=== PATIENT | female | born 1985 | race American Indian/Alaskan Native ===

== ENCOUNTER 2022-03-16 17:09 | Emergency (ER) | payer SELFPAY ==
[2022-03-16 19:35] LABS: Bacteria,Urine 1+ /HPF (Negative); Mucus,Urine 1+ /HPF
[2022-03-16 19:36] LABS: Color,Urine Yellow (Yellow); HCG Qualitative,Urine Negative (Negative)
[2022-03-16 22:38] LABS: Basophils # (Auto) 0.1 K/mm3 (0.0-0.1); Basophils % (Auto) 0.5 % (0.0-1.8); Eosinophils # (Auto) 0.1 K/mm3 (0.0-0.4); Eosinophils % (Auto) 0.7 % (0.0-4.3); Hematocrit 43.2 % (30.3-42.9); Hemoglobin 14.1 gm/dl (10.1-14.3); Lymphocytes # (Auto) 1.3 K/mm3 (1.2-5.4); Mean Corpuscular HGB Conc 33 % (30-34); Mean Corpuscular Volume 90 fl (79-97); Monocytes # (Auto) 0.4 K/mm3 (0.0-0.8); Monocytes % (Auto) 2.7 % (0.0-7.3); Platelet Count 293 K/mm3 (140-440); Red Blood Count 4.81 M/mm3 (3.65-5.03); Red Cell Distribution Width 13.1 % (13.2-15.2)
[2022-03-16] MEDS ORDERED: ONDANSETRON 4 MG/2 ML INJ IV ONE (22:52)
[2022-03-16] MEDS ORDERED: SODIUM CHLORIDE 0.9% 1000 ML 1,000 ML IV ONE (22:53)
[2022-03-16] MEDS ORDERED: MORPHINE 4 MG/1 ML INJ IV ONE (22:54)
[2022-03-16 22:56] LABS: Blood Urea Nitrogen 10 mg/dL (7-17); Calcium 9.3 mg/dL (8.4-10.2); Hemolysis Index 9
--- NOTE | 2022-03-16 22:58 | Emergency Department Report ---
ED Abdominal Pain HPI - General Chief Complaint: Abdominal Pain Stated Complaint: ABD PAIN Time Seen by Provider: 03/16/22 22:41 Source: patient Mode of arrival: Ambulatory Limitations: No Limitations - History of Present Illness Initial Comments: 6-year-old female who presents with abdominal pain that has been going on for the last 3 days or 72 hours progressively getting worse. Pain is located at the epigastrium and periumbilical. Patient also reports some nausea with some blood streak emesis. Patient reported that she could not tolerate any fluid or solids food. No fever or chills reported. Patient also denies any diarrhea. Patient also mentioned alcohol 72 hours before the pain started. No other modifying or associated factors reported. MD Complaint: abdominal pain Severity scale (0 -10): 5 - Related Data Previous Rx's Medication Instructions Recorded Last Taken Type Omeprazole Magnesium [PriLOSEC Otc] 20 mg PO BID 30 Days #60 tab NS 03/17/22 Unknown Rx Ondansetron (Nf) [Zofran TAB] 8 mg PO Q8HR PRN 5 Days #15 tablet 03/17/22 Unknown Rx NS predniSONE [Deltasone] 20 mg PO QDAY 7 Days #7 tab NS 03/17/22 Unknown Rx Allergies Allergy/AdvReac Type Severity Reaction Status Date / Time No Known Allergies Allergy Verified 03/16/22 17:54 ED Review of Systems ROS: Stated complaint: ABD PAIN Other details as noted in HPI Comment: All other systems reviewed and negative Gastrointestinal: abdominal pain, nausea, vomiting. denies: diarrhea, constipation ED Past Medical Hx - Past Medical History Previous Medical History?: No - Surgical History Past Surgical History?: No - Medications Home Medications: Home Medications Medication Instructions Recorded Confirmed Last Taken Type Omeprazole Magnesium [PriLOSEC Otc] 20 mg PO BID 30 Days #60 tab NS 03/17/22 Unknown Rx Ondansetron (Nf) [Zofran TAB] 8 mg PO Q8HR PRN 5 Days #15 tablet 03/17/22 Unknown Rx NS predniSONE [Deltasone] 20 mg PO QDAY 7 Days #7 tab NS 03/17/22 Unknown Rx ED Physical Exam - General Limitations: No Limitations General appearance: alert, in distress (due to pain ) - Head Head exam: Present: normal inspection - Eye Eye exam: Present: normal appearance Pupils: Present: normal accommodation - ENT ENT exam: Present: normal exam, normal orophraynx, mucous membranes dry, other (dry mucosa ) - Neck Neck exam: Present: normal inspection, full ROM. Absent: tenderness - Respiratory Respiratory exam: Present: normal lung sounds bilaterally. Absent: respiratory distress, accessory muscle use - Cardiovascular Cardiovascular Exam: Present: regular rate, normal rhythm, normal heart sounds - GI/Abdominal GI/Abdominal exam: Present: soft, tenderness (epigastrium and paraumbilical ), normal bowel sounds. Absent: distended - Extremities Exam Extremities exam: Present: normal inspection, normal capillary refill. Absent: tenderness, pedal edema - Back Exam Back exam: Absent: tenderness, CVA tenderness (R), CVA tenderness (L) - Neurological Exam Neurological exam: Present: alert, oriented X3 - Psychiatric Psychiatric exam: Present: normal affect, normal mood - Skin Skin exam: Present: warm, normal color ED Course Vital Signs 03/16/22 03/16/22 03/16/22 17:51 21:56 23:00 Temperature 98.1 F Pulse Rate 94 H 74 Respiratory 16 17 18 Rate Blood Pressure Blood Pressure 141/70 87/56 [Right] O2 Sat by Pulse 100 100 Oximetry 03/16/22 03/16/22 03/16/22 23:10 23:16 23:34 Temperature 99.1 F Pulse Rate 98 H Respiratory 18 Rate Blood Pressure Blood Pressure 133/68 [Right] O2 Sat by Pulse 98 100 100 Oximetry 03/16/22 03/17/22 03/17/22 23:45 00:01 00:15 Temperature Pulse Rate Respiratory Rate Blood Pressure 124/66 124/66 124/66 Blood Pressure [Right] O2 Sat by Pulse 99 97 98 Oximetry 03/17/22 00:31 Temperature Pulse Rate Respiratory Rate Blood Pressure 104/79 Blood Pressure [Right] O2 Sat by Pulse 99 Oximetry ED Medical Decision Making - Lab Data Result diagrams: 03/16/22 22:17 03/16/22 22:17 - Radiology Data FINDINGS: CT abdomen without contrast demonstrates prominent hepatic steatosis. There is a hyperdense round mass within the right lobe of the liver measuring 2.3 cm. There are additional smaller mass noted in the inferior aspect of the right hepatic lobe. These may represent hemangiomata. Spleen, pancreas, kidneys, and adrenal glands are unremarkable. Gallbladder is present without obvious abnormality. Abdominal aorta is normal. CT pelvis demonstrates normal appearance of the appendix in the right lower quadrant. The terminal ileum is abnormal in appearance. The de la cruz of the terminal ileum are thickened and there is mild surrounding inflammatory change. The possibility of Crohn's disease is raised. The remainder of the small bowel is normal in appearance. IUD is present within the uterus and appears grossly unremarkable. No adnexal mass or free fluid noted. Visualized lung bases are clear. No significant acute osseous abnormality noted. IMPRESSION: 1. Abnormal appearance of the terminal ileum. The terminal ileum is thick- walled and inflamed. The appearance is likely due to Crohn's disease, if clinical symptoms and presentation correlate. 2. Marked hepatic steatosis. Additionally, there are are 2 hyperdense masses within the right lobe. 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 Suggest further evaluation with hepatic ultrasound on nonemergent basis. - Medical Decision Making Here with abdominal pain--differential could be but not limited to gastroenteri tis, GERD or gastritis, appendicitis, diverticulitis, cholecystitis, cholelithiasis, nephrolithiasis, pancreatitis, duodenitis, colitis, irritable bowel syndrome, cystitis, so in order to rule this out we will go ahead and order routine acute abdomen that include CBC, CMP, urinalysis, and CT imaging of the abdomen/pelvic. In the meantime we will go ahead and order morphine 4 mg, and Zofran 4 mg, and start IV fluids normal saline 1 L bolus for symptomatic relief while we waiting for the above testing. CT suspects Crohn's disease -- will go ahead and start steroid treatment with close follow up with PCP Critical care attestation.: If time is entered above; I have spent that time in minutes in the direct care of this critically ill patient, excluding procedure time. ED Disposition Clinical Impression: Abdominal pain Qualifiers: Abdominal location: unspecified location Qualified Code(s): R10.9 - Unspecified abdominal pain Crohn's disease Qualifiers: Gastrointestinal tract location: unspecified location Digestive disease complication type: unspecified complication Qualified Code(s): K50.919 - Crohn's disease, unspecified, with unspecified complications Disposition: HOME / SELF CARE / HOMELESS Is pt being admited?: No Does the pt Need Aspirin: No Condition: Stable Instructions: Abdominal Pain (ED), Abdominal Pain, Adult, [id number], Colitis Additional Instructions: Take your steroids as prescribed to continue to help your symptoms Please do not hesitate to call and follow-up with your primary doctor in the next 3 to 5 days for reevaluation and treatment Call or return to emergency room if your symptoms worsen Increase your daily fluid to help your hydration Prescriptions: predniSONE [Deltasone] 20 mg PO QDAY 7 Days #7 tab NS Omeprazole Magnesium [PriLOSEC Otc] 20 mg PO BID 30 Days #60 tab NS Ondansetron (Nf) [Zofran TAB] 8 mg PO Q8HR PRN 5 Days #15 tablet NS PRN Reason: Nausea And Vomiting Referrals: PRIMARY CARE,MD [Primary Care Provider] - 3-5 Days [facility]MA[facility] JIMENE[facility] [Referring] - 3-5 Days Time of Disposition: 02:45
[2022-03-16 22:59] LABS: BUN/Creatinine Ratio 17
[2022-03-16 23:53] LABS: Alanine Aminotransferase 29 units/L (7-56); Albumin 4.3 g/dL (3.9-5)
[2022-03-16 23:58] LABS: Bilirubin,Direct < 0.2 mg/dL (0-0.2)
--- NOTE | 2022-03-17 00:08 | Cat Scan Report ---
CT abdomen pelvis wo con INDICATION / CLINICAL INFORMATION: abdominal pain. TECHNIQUE: Axial CT imaging of abdomen and pelvis was obtained without contrast. Coronal and sagittal reformatte d imaging obtained and reviewed. All CT scans at this location are performed using CT dose reduction for ALARA by means of automated exposure control. COMPARISON: None available. FINDINGS: CT abdomen without contrast demonstrates prominent hepatic steatosis. There is a hyperdense round mas s within the right lobe of the liver measuring 2.3 cm. There are additional smaller mass noted in the inferior aspect of the right hepatic lobe. These may represent hemangiomata. Spleen, pancreas, kidne ys, and adrenal glands are unremarkable. Gallbladder is present without obvious abnormality. Abdomina l aorta is normal. CT pelvis demonstrates normal appearance of the appendix in the right lower quadrant. The terminal il eum is abnormal in appearance. The de la cruz of the terminal ileum are thickened and there is mild surrou nding inflammatory change. The possibility of Crohn's disease is raised. The remainder of the small b owel is normal in appearance. IUD is present within the uterus and appears grossly unremarkable. No adnexal mass or free fluid note d. Visualized lung bases are clear. No significant acute osseous abnormality noted. IMPRESSION: 1. Abnormal appearance of the terminal ileum. The terminal ileum is thick-walled and inflamed. The ap pearance is likely due to Crohn's disease, if clinical symptoms and presentation correlate. 2. Marked hepatic steatosis. Additionally, there are are 2 hyperdense masses within the right lobe. 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 Suggest further evaluation with hepatic ultrasound on none mergent basis. Signer Name: Mary Kate Chiang MD Signed: 03/17/2022 12:04 AM Workstation Name: [id number]
[2022-03-17] MEDS ORDERED: methylPREDNISolone Sod Succinate 125 MG/2 ML INJ IV ONE (02:47)
[2022-03-17 03:15] VITALS: BP 161/90
== END 2022-03-17 03:15 | disposition home or self-care (01) ==
LOC: ED 17:09
DX: K50.90 Crohn's disease, unspecified, without complications (principal); Z79.899 Other long term (current) drug therapy
CPT/HCPCS: 36415; 74176; 80048; 80076; 81001; 81025; 83690; 84703; 85025; 96361; 96374; 96375; 99284; J2270; J2405; J2930; J7030